=== PATIENT | male | born 1980 | race Two or more races ===

== ENCOUNTER 2019-03-06 05:48 | Day surgery (SDC) | payer OTHER ==
[~2019-03-06] VITALS: Ht 177.8 cm; Wt 132.8 kg
[~2019-03-06 05:48] MED LIST: BENTYL10 MG PO; HYDACE5 PO; HYDACE5325 PO; METO10 PO; NAPR500 PO; NAPR550 PO; OXYACE5T PO; Pepcid40 MG PO; RXOXYACE PO; SUCR1 PO
--- NOTE | 2019-03-06 06:36 | NUR ---
Ambulatory in Day Surgery History, Chart, Medications and Allergies reviewed before start of procedure.Lungs clear T/O to Auscultation. Patient confirms NPO status and agrees with scheduled surgery. Patient reports completing Chlorhexadine shower X2 prior to admission to hospital.Surgical site prepped with 2% Chlorhexidine cloth wipe.
--- NOTE | 2019-03-06 10:38 | NUR ---
PT C/O NAUSEA UPON RETURN TO STEP. LILLY GOMEZ IN PACU, NOT HELPING PER PT STATEMENT. MEDICATED AT THIS TIME WITH PHENERGAN PER ORDERS. PT FAMILY AT BEDSIDE.
--- NOTE | 2019-03-06 10:57 | NUR ---
PT MEDICATED FOR CO PAIN 04/21 IN ABDOMEN. UNABLE TO TOLERATE PO MEDS OF YET SO MEDICATED WITH IV MORPHINE PER ANESTHESIA RECOVERY ORDERS.
--- NOTE | 2019-03-06 11:07 | NUR ---
PT LAYING ON STRETCHER WITH EYES CLOSED, DEEP SNOROUS BREATHING AT THIS TIME. FAMILY REMAINS AT BEDSIDE.
--- NOTE | 2019-03-06 11:44 | NUR ---
SUMMARY: PT HAD ONE EPISODE OF VOMITING WHILE IN STEPDOWN. STATES "I'M FEELING BETTER" WHEN DISCHARGED HOME. REVIEWED DISCHARGE INSTRUCTIONS WITH PATIENT'S WHO WILL BE PRIMARY CAREGIVER FOR PATIENT DURING RECOVERY AT HOME. VERBALIZED UNDERSTANDING OF ALL INSTRUCTIONS. PT STATES PAIN "BETTER" PRIOR TO LEAVING FOR HOME. IV DC TIP INTACT. VOIDED 200 CC DARK YELLOW URINE. DC HOME VIA WC WITH TO DRIVE HIM.
== END 2019-03-06 22:41 | disposition home or self-care (01) ==
LOC: ORSCMMR 05:48 → ORD 07:30 → ORSCMMR 07:30
PROVIDERS: Surgery
PROC: BF121ZZ Fluoroscopy of Gallbladder using Low Osmolar Contrast (ICD-10-PCS; principal; 2019-03-06 07:30)
PROC: 0FT44ZZ Resection of Gallbladder, Percutaneous Endoscopic Approach (ICD-10-PCS; principal; 2019-03-06 07:30)
DX: K80.10 Calculus of gallbladder with chronic cholecystitis without obstruction (principal); Z87.891 Personal history of nicotine dependence
CPT/HCPCS: 74300; 88304; A9270-GY; C1729; J0690; J1100; J2250; J2270; J2405; J2550; J2704; J2765; J3010; J7120